=== PATIENT | male | born 1955 ===

== ENCOUNTER 2018-09-20 09:24 | Emergency (ER) | payer OTHER ==
[2018-09-20 09:39] VITALS: BMI 25.8
[2018-09-20 09:41] VITALS: O2SAT 98
[2018-09-20] MEDS ORDERED: Sodium Chloride 0.9% 1,000 ML IV STA (11:34)
[2018-09-20 11:40] LABS: BASO % 0.6 % (0.0-2.0); EOS # 0.1 K/uL (0.0-0.7); EOS % 1.4 % (0.0-4.0); HEMOGLOBIN 14.7 g/dL (12.0-18.0); LYMPH # 2.6 K/uL (1.0-4.3); LYMPH % 43.9 % (20.0-40.0); MEAN CELL VOLUME 98.9 fl (80.0-94.0); MEAN CORPUSCULAR HGB CONC 33.4 g/dL (33.0-37.0); MEAN PLATELET VOLUME 7.5 fl (7.2-11.7); MONO # 0.5 K/uL (0.0-0.8); NEUT # 2.7 K/uL (1.8-7.0); NEUT % 46.1 % (50.0-75.0); RBC 4.44 Mil/uL (4.40-5.90); RED CELL DISTRIBUTION WIDTH 13.5 % (11.5-14.5); WHITE BLOOD COUNT 5.9 K/uL (4.8-10.8)
[2018-09-20 11:52] LABS: ALB/GLOB RATIO 1.6 (1.0-2.1); ALBUMIN 4.4 g/dL (3.5-5.0); ALT/SGPT 38 U/L (21-72); AST/SGOT 46 U/L (17-59); BLOOD UREA NITROGEN 10 mg/dl (9-20); CALCIUM 9.2 mg/dL (8.4-10.2); GFR NON-AFRICAN AMERICAN > 60
[2018-09-20 11:54] LABS: URINE BILIRUBIN NEGATIVE (NEGATIVE); URINE CLARITY CLEAR (Clear); URINE COLOR STRAW (YELLOW); URINE GLUCOSE (UA) NEG (NEGATIVE); URINE LEUKOCYTE ESTERASE NEG Leu/uL (Negative); URINE PROTEIN NEGATIVE (NEGATIVE); URINE UROBILINOGEN 0.2-1.0 mg/dL (0.2-1.0)
[2018-09-20 12:04] LABS: URINE BLOOD SMALL (NEGATIVE)
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
--- NOTE | 2018-09-20 13:18 | RAD ---
Date of service: 09/20/2018 HISTORY: L sided flank pain; hx of kidney stones COMPARISON: None available. TECHNIQUE: 1 view obtained. FINDINGS: BOWEL: Normal. No obstruction. No free air. Left upper quadrant surgical suture line. BONES: Normal. OTHER FINDINGS: None. IMPRESSION: No significant or acute findings to account for/ related to the clinical presentation.
--- NOTE | 2018-09-20 15:50 | US ---
Date of service: 09/20/2018 PROCEDURE: Ultrasound of the Kidneys HISTORY: L sided flank pain COMPARISON: None available. TECHNIQUE: Sonogram of the kidneys. FINDINGS: RIGHT KIDNEY: Measures: 5.1 x 5.6 x 9.8 cm. Normal in size, contour and echogenicity. No stone, solid mass lesion or hydronephrosis visualized. Incidental midpole cyst 2.2 x 2.4 cm. LEFT KIDNEY: Measures: 4.2 x 5.4 x 10.4 cm. Normal in size, contour and echogenicity. Echogenic focus lower pole 10 x 13 x 14 mm. OTHER FINDINGS: None. IMPRESSION: Left lower pole renal calculus.
[2018-09-20 16:32] VITALS: RESP 20; TEMP 98
[2018-09-20 16:33] VITALS: BP 112/78; PULSE 72
== END 2018-09-20 16:33 | disposition home or self-care (01) ==
LOC: H.ER 09:24
DX: N20.0 Calculus of kidney (principal); E78.00 Pure hypercholesterolemia, unspecified
CPT/HCPCS: 74018; 76770; 80053; 81003; 85025; 96361; 96374; 96375; 99284; J1885; J2405; J7030